=== PATIENT | female | born 1935 | race Caucasian/White ===

== ENCOUNTER 2024-04-26 10:36 | Observation (INO) ==
[2024-04-26] MEDS: Iodixanol 320 (CONTRAST) 100 ML SDV IV ONE (10:59)
[2024-04-26 11:01] LABS: ABS Monocytes 0.8 10^3/uL (0.0-0.9); ABS Neutrophils 5.4 10^3/uL (1.5-7.6); ABS Nucleated RBC 0.01 10^3/ul; Eosinophil % 0.4 %; Hematocrit 41.6 % (35-45); Lymphocyte % 13.5 %; Mean Corpuscular Hemoglobin 27.6 pg (27-33); Mean Corpuscular Hgb Conc 33.8 g/dL (31-36); Mean Corpuscular Volume 81.9 fL (80-97); Mean Platelet Volume 7.4 fL (7.5-11.2); Nucleated Red Blood Cells % 0.1 %/100WBC (0.0-0.8); Platelet Count 236 10^3/uL (150-450); Red Blood Count 5.08 10^6/uL (3.63-4.92); Red Cell Distribution Width 15.7 % (12-17); White Blood Count 7.2 10^3/uL (3.8-11.8)
[2024-04-26 11:14] LABS: Activated Partial Thrombo Time 32.9 seconds (26.0-38.0); INR 1.59 (0.85-1.14)
[2024-04-26 11:35] LABS: Albumin 3.8 g/dL (3.5-5.7); Albumin/Globulin Ratio 1.8 (1-3); Calcium 9.5 mg/dL (8.6-10.3); Creatinine, Serum 1.08 mg/dL (0.51-0.95); Direct Bilirubin 0.1 mg/dL (0.03-0.18); Globulin 2.1 g/dL (2-4); HDL Cholesterol 60.8 mg/dL; Indirect Bilirubin 0.5 mg/dL (0.3-1.0); Potassium 4.2 mmol/L (3.5-5.0); Total Bilirubin 0.6 mg/dL (0.2-1.0); Total Protein 5.9 g/dL (6.4-8.9); eGFR CKD-EPI 49.7 (>60)
[2024-04-26] MEDS: Lactated Ringers 1000 ml BAG 1,000 ML IV ONE (12:48)
[2024-04-26 14:04] LABS: Urine Appearance Clear; Urine Bacteria Absent /HPF (Absent); Urine Bilirubin Negative (Negative); Urine Blood Negative (Negative); Urine Color Light-Yellow; Urine Glucose Negative (Negative); Urine Ketones Negative (Negative); Urine Nitrite Negative (Negative); Urine Protein Trace (Negative); Urine Red Blood Cell 1+(3-5/hpf) /HPF (0-Trace); Urine Squamous Epithelial Cell Present /HPF (Absent); Urine Urobilinogen Negative (Negative); Urine White Blood Cell 3+(>20/hpf) /HPF (0-Trace)
[2024-04-26] MEDS ORDERED: Sulfur Hexaflouride MICROSPHR 25 MG VIAL IV PRN (14:51)
[2024-04-26 20:24] LABS: TSH Ultra Thyroid Stim Horm 4.9 mcIU/mL (0.34-5.60)
[2024-04-27] MEDS: Cholecalciferol (VIT D3) 1,000 unit TAB PO SCH (09:09)
[2024-04-28 13:18] VITALS: BP 113/74
== END 2024-04-28 14:10 | disposition home or self-care (01) ==
LOC: ED 10:36 → EDHOLD 10:36 → SUATTDRO 12:25 → EDHOLD 14:28 → MEDTELE 16:30
PROVIDERS: ADMIT Internal Medicine; ATTEND Internal Medicine